=== PATIENT | female | born 1975 | race Caucasian/White ===

== ENCOUNTER → 2016-07-12 | Outpatient (CLI) | payer OTHER | LOC: CIMAGING 08:22 | PROVIDERS: ATTEND Homeopath | DX: R10.9 Unspecified abdominal pain (principal); R14.0 Abdominal distension (gaseous) | CPT/HCPCS: 76700-PO ==

== ENCOUNTER → 2017-01-14 | Outpatient (CLI) | payer OTHER | LOC: FIMAGING 10:11 | PROVIDERS: ATTEND Internal Medicine | DX: Z12.31 Encounter for screening mammogram for malignant neoplasm of breast (principal) | CPT/HCPCS: G0202 ==